=== PATIENT | female | born 2000 | race Caucasian/White ===

== ENCOUNTER 2023-05-15 16:34 | Emergency (ER) | payer MEDICAID, SELFPAY ==
[2023-05-15 16:36] VITALS: BP 124/84; PULSE 60; RESP 18; TEMP 36.2; O2SAT 99
--- NOTE | 2023-05-15 17:29 | EX.ED.DYSGE1 ---
HPI <DENYS Olivo - Last Filed: 05/15/23 18:14> History of Present Illness Chief Complaint: Dental Narrative Narrative: Patient presenting today due to right upper dental pain that started this afternoon. She reports that she has had similar dental pain in the past and has required antibiotics. She does not currently have a dentist. She denies any fevers or chills. PFSH <DENYS Olivo - Last Filed: 05/15/23 18:14> [facility] Medical History (Updated 05/15/23 @ 17:31 by Alexandra Mar) Pain, dental Home Medications naproxen 500 mg tablet 500 mg PO BID #14 tabs 05/15/23 [Rx Last Taken Unknown] penicillin V potassium 500 mg tablet 500 mg PO 4X/DAY #39 tabs 05/15/23 [Rx Last Taken Unknown] Allergy/AdvReac Type Severity Reaction Status Date / Time bee venom protein (honey bee) Allergy Anaphylaxis Verified 05/15/23 16:36 coconut Allergy Anaphylaxis Verified 05/15/23 16:36 Social History Smoking Status: Current every day smoker tobacco type: e-cigarettes ROS <DENYS Olivo - Last Filed: 05/15/23 18:14> ROS ED Constitutional Constitutional ED: Denies chills or fever(s) ENT ENT ED: Reports dental pain Cardiovascular Cardiovascular: Denies chest pain Respiratory/Chest Respiratory/Chest: Denies cough or dyspnea Gastrointestinal Gastrointestinal: Denies abdominal pain, nausea or vomiting Musculoskeletal Musculoskeletal: Denies arthralgias or myalgias Integumentary Denies rash Neurologic Neurologic: Denies weakness EXAM <DENYS Olivo - Last Filed: 05/15/23 18:14> Physical Exam Const Vital Signs: 05/15/23 16:36 Temperature 97.2 F L Temperature Source Temporal Pulse Rate 60 Respiratory Rate 18 Blood Pressure 124/84 H Blood Pressure Mean 97 Pulse Ox 99 Oxygen Delivery Method Room Air Positive well nourished, well developed and no apparent distress General Appearance ED: well developed HEENT Reports normocephalic and head/scalp atraumatic HEENT Narrative: Poor dentition, multiple dental caries, dental fracture to the right maxillary second bicuspid, no sign of dental abscess. No trismus. Mouth ED: Yes moist mucous membranes normal Eyes PERRL and EOMs intact bilaterally Neck full ROM and supple Chest Wall inspection of chest normal Resp normal respiratory effort and clear to auscultation bilaterally Cardio regular rate and regular rhythm GI soft to palpation, non-tender, non-distended and no masses Back/Spine normal ROM and normal to inspection Extremity normal to inspection and full ROM Neuro oriented x3, CN's II-XII intact bilaterally, moves all extremities, no focal motor deficits and no sensory deficits noted Sensorium / Orientation: awake and alert Psych mental status grossly normal and thought process normal Skin no rashes or lesions noted and no wounds <Walker Mederos MD - Last Filed: 05/15/23 18:28> Physical Exam Const Vital Signs: 05/15/23 16:36 Temperature 97.2 F L Temperature Source Temporal Pulse Rate 60 Respiratory Rate 18 Blood Pressure 124/84 H Blood Pressure Mean 97 Pulse Ox 99 Oxygen Delivery Method Room Air [facility] <DENYS Olivo - Last Filed: 05/15/23 18:14> [facility] Narrative Medical decision making narrative: Patient presenting today due to dental pain that started this afternoon. She is nontoxic-appearing and in no acute distress. Vitals are unremarkable. She has a fracture to her right maxillary second bicuspid. She reports that she noticed this last week. This is where she is having pain. There is no dental abscess, no signs of Ludewig's angina. She will be treated with penicillin with first dose here, she will be given ibuprofen for pain. She will also be given a prescription for naproxen. I have given her a dental referral sheet and have encouraged her to follow-up with a dentist. She will be discharged home in stable condition and is comfortable with plan. <Walker Mederos MD - Last Filed: 05/15/23 18:28> [facility] Narrative Medical decision making narrative: Patient presenting today due to dental pain that started this afternoon. She is nontoxic-appearing and in no acute distress. Vitals are unremarkable. She has a fracture to her right maxillary second bicuspid. She reports that she noticed this last week. This is where she is having pain. There is no dental abscess, no signs of Ludewig's angina. She will be treated with penicillin with first dose here, she will be given ibuprofen for pain. She will also be given a prescription for naproxen. I have given her a dental referral sheet and have encouraged her to follow-up with a dentist. She will be discharged home in stable condition and is comfortable with plan. Dr. Mederos: I have personally performed a face to face assessment of the patient and have reviewed the LISSETH Note. I performed a substantive portion of the visit including all aspects of the following. My cornejo findings include: History is right upper jaw pain secondary to fractured tooth. Exam is afebrile. Vital signs noted. Positive fractured tooth/dental carry right maxillary second bicuspid. No fluctuance of gum. No drooling or trismus. Airway patent. Medical Decision Making: Smoking cessation was discussed. Antibiotics, anti-inflammatories, follow-up with dentist. Discharge. Other additions or changes: [None] Discharge Plan Triage Chief Complaint: Dental ED Midlevel Provider: Nela Jose ED Provider: Walker Mederos Dx/Rx/DC Orders Clinical Impression: Dental caries, Pain, dental, Fracture of tooth Instructions: ED Dental Pain Prescriptions: New penicillin V potassium 500 mg tablet 500 mg PO 4X/DAY Qty: 39 0RF naproxen 500 mg tablet 500 mg PO BID Qty: 14 0RF Primary Care Provider: Care Physician,No Primary Referrals: Barbara Gonzales MD [Non-Staff] - Activity Restrictions/Additional Instructions: Please follow-up with one of the dentist I have referred you to. Return for any worsening of your symptoms. Take antibiotics as prescribed. Disposition Disposition: Home, Self Care Discharge Date/Time: 05/15/23 17:56
[2023-05-15] MEDS: Penicillin Vk 250 MG Tablet 500 MG PO (17:30)
[2023-05-15] MEDS: Ibuprofen 600 MG Tablet PO (17:30)
--- OUTSIDE RECORDS SUMMARY | 2023-05-15 17:55 | XMS RPT_ITS | CCD ---
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 Found Advance Directives No Advanced Directives Records FoundNo Advanced Directives Records FoundNo Advanced Directives Records FoundNo Advanced Directives Records FoundNo Advanced Directives Records FoundNo Advanced Directives Records Found Additional Source Comments INFORMATION SOURCE (unrecogn ized section and content) DATE CREATED AUTHOR AUTHOR'S ORGANIZ ATION 06/22/2018 [place] DATE CREATED AUTHOR AUTHOR'S ORGANIZ ATION 08/12/2018 [facility] DATE CREATED AUTHOR AUTHOR'S ORGANIZ ATION 03/12/2021 [facility] DATE CREATED AUTHOR AUTHOR'S ORGANIZ ATION 05/19/2021 [facility] DATE CREATED AUTHOR AUTHOR'S ORGANIZ ATION 05/07/2023 [facility] Source Comments (unrecognize d section and content) In the event this informatio n is protected by the Federal Confidentiality of Alcohol and Drug Abuse Patient Records regulations: The Federal rules restrict any use of the information to criminally investigate or prosecute any alcohol or drug abuse patient.[facility] the event this information is protected by the Federal Confidentiality of Alcohol and Drug Abuse Patient Records regulations: The Federal rules restrict any use of the information to criminally investigate or prosecute any alcohol or drug abuse patient.[facility] Reason for Visit (unrecogniz ed section and content) Reason Comments Results Care Teams (unrecognized sec tion and content) 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 This clinical summary was aggregated from multiple sources. Caution should be exercised in using it in the provision of clinical care. This summary normalizes information from multiple sources, and as a consequence, information in this document may materially change the coding, format and clinical context of patient data. In addition, data may be omitted in some cases. CLINICAL DECISIONS SHOULD BE BASED ON THE PRIMARY CLINICAL RECORDS. [employer] [facility] provides no warranty or guarantee of the accuracy or completeness of information in this document.
== END 2023-05-15 17:56 | disposition home or self-care (01) ==
LOC: ED 17:49
PROVIDERS: Emergency Provider Emergency Medicine; Visit Provider Emergency Medicine
DX: S02.5XXA Fracture of tooth (traumatic), initial encounter for closed fracture (principal); K02.9 Dental caries, unspecified; F17.290 Nicotine dependence, other tobacco product, uncomplicated
CPT/HCPCS: 99283